=== PATIENT | female | born 1995 | race Caucasian/White ===

== ENCOUNTER 2018-01-15 15:23 | Emergency (ER) | payer SELFPAY ==
[~2018-01-15] VITALS: Ht 167.6 cm; Wt 54.0 kg
[2018-01-15 19:59] VITALS: BP 112/75
== END 2018-01-15 20:06 | disposition home or self-care (01) ==
LOC: ER 15:23
DX: R21 Rash and other nonspecific skin eruption (principal); F17.200 Nicotine dependence, unspecified, uncomplicated
CPT/HCPCS: 99283

== ENCOUNTER 2018-09-04 23:25 | Emergency (ER) | payer SELFPAY ==
[~2018-09-04] VITALS: Ht 157.5 cm; Wt 53.0 kg
[2018-09-05] MEDS ORDERED: ONDANSETRON HCL 4MG/2ML INJ IV STA (00:14)
[2018-09-05] MEDS ORDERED: SODIUM CHLORIDE 0.9% 1,000 ML IV ONE (00:14)
[2018-09-05] MEDS ORDERED: KETOROLAC 30MG/ML VIAL IV STA (00:14)
[2018-09-05 00:53] LABS: BASOPHILS % 0.3 % (0.0-2.0); EOSINOPHILS % 0.3 % (0.0-5.0); HEMATOCRIT. 40.4 % (36.0-48.0); HEMOGLOBIN. 13.3 g/dL (12.0-16.0); LYMPHOCYTES % 33.4 % (20.0-50.0); MEAN CORPUSCULAR HEMOGLOBIN 26.9 pg (28.0-32.0); MEAN CORPUSCULAR VOLUME 81.7 fL (81.0-99.0); MEAN PLATELET VOLUME 7.9 fl (7.4-10.4); MONOCYTES % 9.2 % (2.0-8.0); NEUTROPHILS % 56.8 % (40.0-76.0); PLATELET 259 x1000/uL (130-400); RED BLOOD CELL COUNT 4.95 mill/uL (4.2-5.4); RED CELL DISTRIBUTION WIDTH 13.6 % (11.6-14.6)
[2018-09-05 00:57] LABS: CHLORIDE 106 mEq/L (98-107)
[2018-09-05] MEDS ORDERED: HYDROCODONE/ACETAMINOPHEN 5/325MG TABLET PO ONE (01:30)
[2018-09-05 03:47] VITALS: BP 108/69
== END 2018-09-05 03:49 | disposition home or self-care (01) ==
LOC: ER 23:25
DX: S82.391A Other fracture of lower end of right tibia, initial encounter for closed fracture (principal); R55 Syncope and collapse; W01.0XXA Fall on same level from slipping, tripping and stumbling without subsequent striking against object, initial encounter; Y93.89 Activity, other specified; Y92.098 Other place in other non-institutional residence as the place of occurrence of the external cause
CPT/HCPCS: 29515; 36415; 71045; 73610; 80053; 81025; 83880; 84484; 85025; 93005; 96361; 96374; 96375; 99284; J1885; J2405; J7030; Z7610